=== PATIENT | male | born 1980 | race African-American/Black ===

== ENCOUNTER 2017-01-09 00:11 | Emergency (ER) | payer SELFPAY ==
[~2017-01-09] VITALS: Ht 170.2 cm; Wt 61.2 kg
[2017-01-09 00:20] VITALS: BP 152/90
--- NOTE | 2017-01-09 00:45 | NUR ---
PT TAKEN TO BED 6
--- NOTE | 2017-01-09 00:46 | NUR ---
Dr. Henderson evaluating patient at bedside.
--- NOTE | 2017-01-09 00:50 | NUR ---
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 EKG DONE, ED MD MADE AWARE OF RHYTHM. BP ELEVATED, SATS 98% ON RA. PT ALERT AND ORIENTED X 4 WITH CLEAR SPEECH, SKIN IS DRY AND WARM. PT REPORTS HX OF AMI AND HTN IN 2010. NO RX AT HOME. IV STARTED ON RAC.
[2017-01-09] MEDS ORDERED: NITROGLYCERIN 0.4 MG TAB SL ONE (00:55)
[2017-01-09] MEDS ORDERED: ASPIRIN 325 MG TAB PO ONE (00:55)
--- NOTE | 2017-01-09 00:58 | NUR ---
NTG 0.4 MG SL GIVEN BP 158/108 P105
--- NOTE | 2017-01-09 01:05 | NUR ---
Patient to be transferred to [facility]. Is being transferred due to HIGHER LEVEL OF CARE. Receiving facility has accepting physician and available space. ER physician has signed transfer form. Patient or responsible green party has agreed to transfer and signed form. Patient belongings inventoried and will be sent with patient. Copy of nursing notes, lab reports, EKG, Physicians Orders and X-rays to be sent with patient. Report called to DAVE DANIELLE at receiving facility. [facility] ambulance service has been called for transfer. ETA is 5 MINUTES.
--- NOTE | 2017-01-09 01:05 | NUR ---
NTG 0.4 MG SL GIVEN BP 158/102 P109 , CP 6
--- NOTE | 2017-01-09 01:10 | NUR ---
NTG 0.4 MG SL GIVEN BP 152/102 P110, CP 6
--- NOTE | 2017-01-09 01:19 | NUR ---
PT TAKEN BY [facility] TRANSPORT TO [facility] ER
[2017-01-09 01:24] VITALS: BP 158/103
== END 2017-01-09 01:19 | disposition short-term general hospital (02) ==
LOC: MED 00:11
DX: I21.29 ST elevation (STEMI) myocardial infarction involving other sites (principal); R07.89 Other chest pain; I10 Essential (primary) hypertension; R00.0 Tachycardia, unspecified; F17.210 Nicotine dependence, cigarettes, uncomplicated; F14.90 Cocaine use, unspecified, uncomplicated
CPT/HCPCS: 93005; 99285